=== PATIENT | female | born 1960 | race Caucasian/White ===

== ENCOUNTER 2017-02-14 13:21 | Outpatient (CLI) ==
[2014-11-06 17:16] VITALS: BMI 22.0
[2017-02-14 14:01] LABS: BASOPHILS # (AUTO) 0.1 K/uL (0-0.2); BASOPHILS % (AUTO) 0.9 % (0.0-3.0); EOSINOPHILS # (AUTO) 0.3 K/ul (0.0-0.7); EOSINOPHILS % (AUTO) 5.1 % (0.0-7.0); HEMATOCRIT 39.9 % (37.0-47.0); HEMOGLOBIN 14.2 g/dl (12.0-16.0); IMMATURE GRANULOCYTE % (AUTO) 0.2 % (0.0-5.0); LYMPHOCYTES # (AUTO) 2.7 K/uL (0.60-3.4); MEAN CORPUSCULAR HGB CONC 35.6 (31.8-35.4); MEAN CORPUSCULAR VOLUME 84.4 fl (81.0-99.0); MONOCYTES # (AUTO) 0.4 K/uL (0.4-2.0); MONOCYTES % (AUTO) 6.3 (0-10); NEUTROPHILS # (AUTO) 2.8 K/ul (2.0-6.9); NEUTROPHILS % (AUTO) 44.5; PLATELET COUNT 239 10^3/uL (140-440); RED BLOOD COUNT 4.73 10^6/ul (4.20-5.40); WHITE BLOOD COUNT 6.32 K/ul (4.6-10.2)
[2017-02-14 14:39] LABS: ALBUMIN 3.9 g/dL (3.4-5.0); ALBUMIN/GLOBULIN RATIO 1.05; ANION GAP 12.3; BILIRUBIN,TOTAL 0.41 mg/dL (0.00-1.20); BUN/CREATININE RATIO 13.58; CALCIUM 9.8 mg/dL (8.2-10.2); CHOL/HDL RATIO 6.6 (4.5-5.5); CREATININE 0.81 mg/dL (0.60-1.30); POTASSIUM 4.3 mmol/L (3.5-5.10); TOTAL PROTEIN 7.6 g/dL (6.4-8.2)
== END 2017-02-14 13:22 | disposition home or self-care (01) ==
LOC: LAB 13:21
PROVIDERS: ATTEND Internal Medicine
DX: E78.5 Hyperlipidemia, unspecified (principal); I10 Essential (primary) hypertension; E11.9 Type 2 diabetes mellitus without complications; I63.9 Cerebral infarction, unspecified; J44.9 Chronic obstructive pulmonary disease, unspecified; M19.90 Unspecified osteoarthritis, unspecified site; G62.9 Polyneuropathy, unspecified
CPT/HCPCS: 36415; 80053; 80061; 82607; 83036; 84443; 85025

== ENCOUNTER 2017-04-17 14:10 | Inpatient (IN) ==
[2017-04-17 15:30] VITALS: BMI 21.1
[2017-04-17] MEDS ORDERED: MORPHINE 4 MG/ML VIAL IVP PRN (15:30)
[2017-04-17] MEDS ORDERED: TYLENOL PO PRN (15:30)
[2017-04-17] MEDS ORDERED: NITROSTAT SL PRN (15:30)
[2017-04-17] MEDS ORDERED: ATROPINE SULFATE PFS IVP PRN (15:30)
[2017-04-17] MEDS ORDERED: VISTARIL INJ IM PRN (15:30)
[2017-04-17] MEDS ORDERED: HUMULIN R SUBCUT PRN (15:54)
[2017-04-17 16:01] LABS: BASOPHILS # (AUTO) 0.1 K/uL (0-0.2); BASOPHILS % (AUTO) 0.8 % (0.0-3.0); EOSINOPHILS # (AUTO) 0.3 K/ul (0.0-0.7); HEMATOCRIT 39.9 % (37.0-47.0); HEMOGLOBIN 14.1 g/dl (12.0-16.0); IMMATURE GRANULOCYTE % (AUTO) 0.4 % (0.0-5.0); LYMPHOCYTES % (AUTO) 36.6 (10.0-50.0); MEAN CORPUSCULAR HEMOGLOBIN 30.4 pg (27.0-31.0); MEAN CORPUSCULAR HGB CONC 35.3 (31.8-35.4); MONOCYTES # (AUTO) 0.5 K/uL (0.4-2.0); NEUTROPHILS # (AUTO) 4.3 K/ul (2.0-6.9); NEUTROPHILS % (AUTO) 52.2; PLATELET COUNT 237 10^3/uL (140-440); RED BLOOD COUNT 4.64 10^6/ul (4.20-5.40); WHITE BLOOD COUNT 8.27 K/ul (4.6-10.2)
[2017-04-17] MEDS: PLAVIX PO SCH (16:04)
[2017-04-17 16:15] LABS: ALANINE AMINOTRANSFERASE 24 U/L (12-78); ALBUMIN 3.6 g/dL (3.4-5.0); ALBUMIN/GLOBULIN RATIO 0.88; ALKALINE PHOSPHATASE 99 U/L (42-98); ASPARTATE AMINO TRANSFERASE 15 U/L (15-37); BILIRUBIN,TOTAL 0.37 mg/dL (0.00-1.20); BLOOD UREA NITROGEN 16 mg/dL (7-18); BUN/CREATININE RATIO 18.39; CALCIUM 10.1 mg/dL (8.2-10.2); CARBON DIOXIDE 25 mmol/L (21-32); CHLORIDE 98 mmol/L (98-107); CREATINE KINASE 62 U/L; CREATININE 0.87 mg/dL (0.60-1.30); GLUCOSE 338 mg/dL (70-110); MYOGLOBIN 52 ng/ml; SODIUM 135 mmol/L (136-145); TOTAL PROTEIN 7.7 g/dL (6.4-8.2)
--- NOTE | 2017-04-17 16:33 | DI ---
EXAM: Single view of the chest. History: Short of breath Comparison: Chest radiograph 01/06/2015 Findings: Heart size is normal. No focal consolidation. No appreciable pleural fluid and no pneumo thorax. A few calcified granulomas seen within the thorax. Atherosclerotic vascular calcifications. Impression: No acute cardiopulmonary process
--- NOTE | 2017-04-17 17:04 | CT ---
EXAM: CT of the head with and without contrast History: Cerebrovascular accident. Comparison: Head CT 07/28/2014 Technique: Multiplanar CT images through the head were obtained with and without the administration of IV contrast Findings: Complete opacification of the left maxillary sinus and moderate to severe mucosal thickenin g of the ethmoid air cells. Mild to moderate mucosal thickening of the sphenoid sinuses and frontal sinuses. There is some high density material seen within the sinus mucosal thickening Air fluid leve l within the sphenoid sinuses. Mastoid air cells are clear in general. No acute calvarial abnormali ties. Intracranially the ventricular and cisternal spaces are stable without evidence for hydrocephalus. N o acute intracranial hemorrhage or abnormal extraaxial fluid collections. Periventricular and subcor tical white matter hypodensities again identified. Old bilateral lacunar infarctions again noted. No abnormal contrast enhancement seen within the brain. Impression: 1. No acute intracranial hemorrhage. 2. Old bilateral lacunar infarctions, similar to the prior study. 3. No contrast enhancing lesions are seen within the brain. 4. Paranasal sinusitis as detailed above which is severe involving the left maxillary sinus and mode rate to severe involving the ethmoid air cells. High density material in the sinuses could be relate d to old inspissated secretions, hemorrhage or fungal infection.
--- NOTE | 2017-04-17 17:07 | US ---
EXAM: Bilateral carotid artery Doppler History: Headaches, weakness, cerebrovascular accident. Comparison: Carotid Doppler 05/29/2014 Technique: Multiple sonographic images through the bilateral internal carotid arteries were obtained . Color duplex Doppler was used to interrogate vascular flow. Findings: The right ICA peak systolic velocity is moderately elevated measuring 1.3 meters per second. The rig ht ICA/cca PSV ratio is moderately increased at 2.4. The right vertebral artery was not visualized. The left ICA peak systolic velocity is within normal limits measuring 0.8 meters per second. The lef t ICA/cca PSV ratio is normal at 1.4. The left vertebral artery is patent and demonstrates antegrade flow. Mild plaque buildup seen within the left internal carotid artery on ambriz scale imaging. Moderate gentry que buildup seen within the right internal carotid artery on ambriz scale imaging. Impression: 1. No significant hemodynamic stenosis of the left internal carotid artery. 2. Moderate, 50-69% hemodynamic stenosis of the right internal carotid artery
[2017-04-17] MEDS: HUMULIN R SUBCUT PRN ×2 (17:22→22:55)
[2017-04-17] MEDS: COREG PO SCH (17:25)
[2017-04-17] MEDS: PERCOCET 5-325 PO SCH (20:51)
[2017-04-17] MEDS: ATIVAN PO SCH (20:51)
[2017-04-17] MEDS: CYMBALTA PO SCH (20:51)
[2017-04-17] MEDS: EFFEXOR XR PO SCH (20:51)
[2017-04-17] MEDS: NEURONTIN PO SCH (20:51)
[2017-04-17] MEDS: LANTUS SUBCUT SCH (20:54)
[2017-04-17] MEDS ORDERED: NON-FORMULARY MEDICATION (Duloxetine Hcl [Duloxetine Hcl] 60 MG) PO SCH (21:00)
[2017-04-17] MEDS ORDERED: NON-FORMULARY MEDICATION (Venlafaxine Hcl 150 MG) PO SCH (21:00)
[2017-04-17 23:28] LABS: CREATINE KINASE 60 U/L; MYOGLOBIN 61 ng/ml
[2017-04-18 00:24] LABS: BILIRUBIN,URINE Negative (NEGATIVE); KETONES,URINE Trace (NEGATIVE); LEUKOCYTE ESTERASE ,URINE Trace (NEGATIVE); NITRITE,URINE Negative (NEGATIVE); PH,URINE 5.5 (5-9); PROTEIN,URINE Negative (NEGATIVE); URINE, BLOOD Negative (NEGATIVE)
[2017-04-18 00:29] LABS: ADD URINE MICROSCOPIC YES
[2017-04-18 00:30] LABS: BACTERIA,URINE 4+ (NOT PRESENT)
[2017-04-18] MEDS ORDERED: ASPIRIN EC PO SCH (08:00)
[2017-04-18] MEDS ORDERED: NON-FORMULARY MEDICATION (Losartan/Hydrochlorothiazide [Losartan-Hctz 100-25 Mg Tab] 1 TAB PO SCH (09:00)
[2017-04-18] MEDS ORDERED: NON-FORMULARY MEDICATION (Multivitamin 1 TAB) PO SCH (09:00)
[2017-04-18] MEDS ORDERED: NON-FORMULARY MEDICATION (Calcium Carbonate/Vitamin D3 [Calcium 500-Vit D3 400 Tablet] 1 E PO SCH (09:00)
[2017-04-18 09:12] LABS: BASOPHILS # (AUTO) 0.1 K/uL (0-0.2); BASOPHILS % (AUTO) 0.8 % (0.0-3.0); EOSINOPHILS # (AUTO) 0.4 K/ul (0.0-0.7); EOSINOPHILS % (AUTO) 6.6 % (0.0-7.0); HEMOGLOBIN 13.8 g/dl (12.0-16.0); IMMATURE GRANULOCYTE % (AUTO) 0.2 % (0.0-5.0); LYMPHOCYTES # (AUTO) 2.3 K/uL (0.60-3.4); LYMPHOCYTES % (AUTO) 36.9 (10.0-50.0); MEAN CORPUSCULAR HEMOGLOBIN 30.3 pg (27.0-31.0); MEAN CORPUSCULAR HGB CONC 35.4 (31.8-35.4); MEAN CORPUSCULAR VOLUME 85.7 fl (81.0-99.0); MONOCYTES # (AUTO) 0.5 K/uL (0.4-2.0); MONOCYTES % (AUTO) 8.2 (0-10); NEUTROPHILS # (AUTO) 2.9 K/ul (2.0-6.9); NEUTROPHILS % (AUTO) 47.3; PLATELET COUNT 212 10^3/uL (140-440); RED BLOOD COUNT 4.55 10^6/ul (4.20-5.40)
[2017-04-18 09:33] LABS: ALBUMIN 3.7 g/dL (3.4-5.0); ALBUMIN/GLOBULIN RATIO 1.09; ANION GAP 12.7; BILIRUBIN,TOTAL 0.33 mg/dL (0.00-1.20); BUN/CREATININE RATIO 19.48; CREATININE 0.77 mg/dL (0.60-1.30); POTASSIUM 3.7 mmol/L (3.5-5.10); TOTAL PROTEIN 7.1 g/dL (6.4-8.2)
[2017-04-18] MEDS: NEURONTIN PO SCH ×3 (10:46→20:55)
[2017-04-18] MEDS: HYZAAR 50-12.5 MG TAB PO SCH (10:46)
[2017-04-18] MEDS: MULTIVITAMIN TABLET PO SCH (10:47)
[2017-04-18] MEDS: COREG PO SCH ×2 (10:47→16:42)
[2017-04-18] MEDS: ASPIRIN EC PO SCH (10:48)
[2017-04-18] MEDS: CALCIUM 500 + VIT D 200 MG TABLET PO SCH (10:48)
[2017-04-18] MEDS: BACTRIM DS 800/160 MG PO SCH ×2 (10:48→20:55)
[2017-04-18] MEDS: PLAVIX PO SCH (10:48)
[2017-04-18] MEDS: PERCOCET 5-325 PO SCH ×3 (10:49→20:55)
--- NOTE | 2017-04-18 11:01 | DI ---
EXAM: Double contrast upper GI History: Difficulty swallowing. Technique: Patient was given gas crystals. Patient was then given oral barium and multiple spot perla ms of the esophagus, stomach and duodenum were obtained in multiple projections. Findings: The course and caliber of the esophagus are within normal limits. No mucosal lesions or filling defe cts identified. No hiatal hernia identified. No gastroesophageal reflux was observed on this study. The course and caliber of the stomach are within normal limits. No mucosal lesions or ulcerations se en. The course and caliber of the duodenum is within normal limits without stricture or diverticulum . No extravasation of contrast material. Impression: Normal study
--- NOTE | 2017-04-18 11:26 | PCM.PROG ---
Attending Provider: ATTENDING PROVIDER: Dr. MATT FISHER DATE OF SERVICE: 04/18/17 SUBJECTIVE: This 57 year old WHITE/ F was hospitalized 04/17/17. The patient is admitted with ataxia and several neurological symptoms with dysphasia onset 08/04. The patient has history of CVA but didn't go to hospital; however, came to office with several complaints. The other complaint was urinary incontinence as well as difficulty speaking. UA showed 4+ bacteria. Telemetry did not show any significant arrhythmias. CT scan did not show any acute findings. Right carotid artery showed moderate carotid stenosis, left is clear. REVIEW OF SYSTEMS: CONSTITUTIONAL: Generalized weakness. Difficulty with speech. No night sweats. No fever or chills. HEENT: Eyes: No visual changes. No eye pain. No eye discharge. ENT: No runny nose. No epistaxis. No sinus pain. No odynophagia. No congestion. RESPIRATORY: No cough, no congestion. No hemoptysis. No shortness of breath. CARDIOVASCULAR: No angina symptoms. No CHF symptoms. No atypical chest pain for CAD. No palpitations. No orthopnea.. GASTROINTESTINAL: No abdominal pain. No nausea or vomiting. No diarrhea or constipation. No hematemesis. No hematochezia. GENITOURINARY: Incontinence. No discharge. No pain. No significant abnormal bleeding. MUSCULOSKELETAL: Ataxia. Walks by herself without a cane. NEUROLOGICAL: Awake, alert, oriented to time, place and person. No headache. No neck pain. No syncope. No seizures. No dizziness. PSYCHIATRIC: Not anxious. No depression. No suicidal thoughts. No homicidal thoughts. SKIN: No rash. No lesions. No wounds. ENDOCRINE: No unexplained weight loss. No weight gain. HEMATOLOGIC/LYMPHATIC: No anemia. No purpura. No petechiae. No prolonged or excessive bleeding. No palpable lymph nodes. PHYSICAL EXAMINATION: GENERAL: The patient is awake, alert and oriented, lying/sitting in bed in no distress. VITAL SIGNS: Temperature 98.4 F, Pulse 83, Respiratory Rate 16, BP 121/73, Pulse Ox 94% HEENT: Head normocephalic, atraumatic. Eyes: Extraocular muscles are intact. Pupils are equal, round and reactive to light and accommodation. Ears: No lesions. Nose appeared normal. Throat: No exudate or erythema. NECK: Supple. No JVD, no carotid bruit. No lymphadenopathy or thyromegaly. LUNGS: Clear to auscultation. Percussion note normal. Chest symmetrical. HEART: S1, S2, no S3. No murmurs. No cyanosis or clubbing. No ascites. Pulses: Dorsalis pedis and posterior tibial pulses +1 to +2 both sides. ABDOMEN: Soft. Non-tender. Bowel sounds active. No CVA tenderness. No mass felt. EXTREMITIES: No edema. Full range of motion of all extremities, equal. NEUROLOGIC: No focal deficit. Cranial nerves II through XII are grossly intact. No headache, no double vision or headache. SKIN: Not dry. Intact. Turgor-normal. LYMPHATIC: No palpable lymph nodes/no lymphedema. MUSCULOSKELETAL: Normal joints with no swelling. Muscle tone is normal. LAB REVIEW: 04/17/17 15:45 04/17/17 15:45 04/17/17 23:02: Total Creatine Kinase 60, Myoglobin 61, Troponin I < 0.0100 04/17/17 21:00: Urine Color Yellow, Urine Clarity Cloudy, Urine pH 5.5, Ur Specific [place] 1.010, Urine Protein Negative, Urine Glucose (UA) 2+, Urine Ketones Trace, Urine Blood Negative, Urine Nitrite Negative, Urine Bilirubin Negative, Urine Urobilinogen 0.2, Ur Leukocyte Esterase Trace, Urine Microscopic RBC 0-2, Urine Microscopic WBC 2-5, Ur Squamous Epith Cells 0-2, Urine Bacteria 4+ 04/17/17 15:45: WBC 8.27, RBC 4.64, Hgb 14.1, Hct 39.9, MCV 86.0, MCH 30.4, MCHC 35.3, RDW Coeff of Abbi 11.9, Plt Count 237, Immature Gran % (Auto) 0.4, Neut % (Auto) 52.2, Lymph % (Auto) 36.6, [place] % (Auto) 6.0, Eos % (Auto) 4.0, Baso % (Auto) 0.8, Immature Gran # (Auto) 0.0, Neut # 4.3, Lymph # 3.0, [place] # 0.5, Eos # 0.3, Baso # 0.1 04/17/17 15:45: Sodium 135 L, Potassium 4.0, Chloride 98, Carbon Dioxide 25, Anion Gap 16.0, BUN 16, Creatinine 0.87, Estimated GFR (MDRD) 67.00, BUN/ Creatinine Ratio 18.39, Glucose 338 H, Calcium 10.1, Total Bilirubin 0.37, AST 15, ALT 24, Alkaline Phosphatase 99 H, Total Creatine Kinase 62, Myoglobin 52, Troponin I < 0.0100, Total Protein 7.7, Albumin 3.6, Globulin 4.1, Albumin/ Globulin Ratio 0.88 ASSESSMENT: 1. The patient likely had CVA with several neurological findings relatively new likely two to three weeks ago 2. UTI 3. 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 Carotid stenosis 5. Smoking with chronic lung disease 6. Hypertension 7. Dyslipidemia 8. Diabetes mellitus PLAN: 1. The patient's biggest problem is noncompliance. 2. Will do swallow study. 3. Start antibiotics Septra b.i.d. for 10 days. 4. Have patient up and about. 5. CBC with CMP daily. 6. A1C. Plan and coordination of the patient's care discussed in the presence of Charging Manipulator and nurse. EDUCATION: Counseling for smoking is done. CONDITION: Stable SCRIBED BY: ROZINA CARLOS [employer] Vice President scribed while in presence of service performed by Dr. MATT FISHER on 04/18/17 ([id number])
[2017-04-18] MEDS: HUMULIN R SUBCUT PRN ×3 (13:04→20:56)
--- NOTE | 2017-04-18 13:06 | RS.PTINEVL ---
Subjective - Patient information Date of Evaluation: 04/18/17 Date of Arrival on Unit: 04/17/17 Admitted From:: Home Diagnosis: ataxia, generalized weakness, difficulty with speech and swallowing Living Arrangement Comments: With significant other Home Environment: House, Stairs (many), Rail Medical History: Hypertension, COPD, Diabetes Medical History Comments:: DJD, anxiety, neuropathy, CVA with right gretta LATEX ALLERGY?: No Surgical History: Hip Replacement Subjective Information/ Patient Comments:: pt states she began having increased difficulty with speech and swallowing at home and thought she was having another stroke. 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, Drive, Participated in Social Activities Outside home, Volunteer/Work Current Level of Function: Partially Dependent Current Equipment Used at Home: walker, cane, glucometer, shower chair, bedside commode Interventions - Objective Patient Orientation: Person, Place, Time, Situation Current Interventions: IV's, Telemetry Range of Motion - ROM Right Upper Extremity AROM: WFL's Left Upper Extremity AROM: WFL's Right Lower Extremity AROM: WFL's Left Lower Extremity AROM: WFL's Muscle Strength - Muscle Strength Right Upper Extremity Strength: Mild Weakness (grossly 4-/5) Left Upper Extremity Strength: Mild Weakness (grossly 4-/5) Right Lower Extremity Strength: Mild Weakness (hip flex 4-/5, knee flex/ext 4-/5 , ankle Df/PF 4-/5) Left Lower Extremity Strength: Mild Weakness (hip flex 4/5, knee flex/ext 4/5, ankle df/pf 4/5) Sensation - Sensation Right Upper Extremity Sensation: Impaired Left Upper Extremity Sensation: Intact/Normal Right Lower Extremity Sensation: Impaired Left Lower Extremity Sensation: Intact/Normal (n/t RUE and RLE) Balance - Sitting Balance and Reactions Static Sitting Balance: Good Dynamic Sitting Balance: Good - Standing Balance and Reactions Static Standing Balance: Fair Dynamic Standing Balance: Poor Standing Equilibrium Reactions: Delayed Left, Delayed Right Standing Protective Reactions: Delayed Left, Delayed Right - Comments Balance Assessment Comments: pt required CGA to maintain balance. Functional Mobility - Bed Mobility Rolling R/L: Independent Scooting: Independent Supine to Sit: Supervision - Transfers Sit to Stand: CGA Stand to Sit: CGA - Safety Awareness Safety Awareness: Fair Ambulation - Ambulation Assistive Device Used: Gait belt Orthotic/Prosthetic Device: No Distance: 100ft Assistance needed with Ambulation: CGA, 1 person assist Gait Deviations: Ataxic gait, Forward posture, Deviates from path Ambulation Comments: pt amb with ORIENTOR for CGA with ataxic gait with decreased heel strike on R heel. Factors Affecting Ambulation: Decreased Balance, Weakness, Decreased Coordination, Cognitive Status, Limited Endurance Treatment time - Time with patient Total treatment time: 28 Patient Education - Education Patient Education: Activity Modification, Education of Plan of Care Teaching Recipient: Patient Teaching Methods: Discussion (Discussion with pt regarding POC ) Assessment - Assessment Problem List:: Decreased level of function, Requires training/education, Decreased safety/Risk of falls, Weakness Rehab Potential: Good Further Therapy Indicated?: Yes Short Term Goals GOAL #1: pt transfer sup to/from sit to/from stand SBA Goal to be met by: 04/20/17 GOAL #2: pt amb with/without AAD 150ft with improved heel strike on R Goal to be met by: 04/20/17 Piece [place] Goals GOAL #1: sup to/from sit to/from stand independently Goal to be met by: 04/22/17 GOAL #2: pt amb functional distances with/without AAD with no LOB Goal to be met by: 04/22/17 GOAL #3: pt with improved strength BLE 4 to 4+/5 and independent with HEP Goal to be met by: 04/22/17 Plan Plan of Care: Therapeutic EX, Therapeutic Activity, Self-Care/Home Management Other:: gait training Frequency of Treatment: 1-2 X day, as tolerated Duration of Treatment: 4 days Anticipated Discharge Destination: Home Has the Physician been added for Co-signature?: Yes
--- NOTE | 2017-04-18 13:15 | RS.OTINEVL ---
Subjective - Patient information Date of Evaluation: 04/18/17 Date of Arrival on Unit: 04/17/17 Admitted From:: Home Diagnosis: Weakness Living Arrangement Comments: With significant other Home Environment: House, Stairs (many), Rail Medical History: Hypertension, CVA/TIA, COPD, Diabetes Medical History Comments:: DJD, anxiety, neuropathy, CVA x 2 with right gretta, decreased RLE proprioception. depression, PTCA with stenting, TIA, Ataxia, edema of B ankles, endocrine disease, STM impaired, difficulty swallowing, and talking. LATEX ALLERGY?: No Surgical History: Hip Replacement Surgical History Comments:: Ablasion, tubal ligation, tonsillectomy, B Hip surgeries Subjective Information/ Patient Comments:: Pt reports she does not drive because she cannot feel her RLE. 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 Pt lives in a house with a rail and 6 steps. Current Level of Function: Partially Dependent Current Equipment Used at Home: walker, cane, glucometer, shower chair, bedside commode Pain Assessment - Pain Pain Score: 0 Interventions - Objective Patient Orientation: Person (Pt would benefit from a Walker for ambulation and transfers at this time.), Place, Situation Current Interventions: IV's, Oxygen Observation: Pt requires Hand held assistance for walking. Interventions - ROM Right Upper Extremity AROM: WFL's Left Upper Extremity AROM: WFL's - Strength Right Upper Extremity Strength: Mild Weakness Left Upper Extremity Strength: Mild Weakness - Sensation Right Upper Extremity Sensation: Intact/Normal Left Upper Extremity Sensation: Intact/Normal Balance - Sitting Balance Static Sitting Balance: Fair Dynamic Sitting Balance: Fair - Standing Balance Static Standing Balance: Poor Dynamic Standing Balance: Poor - Comments Balance Assessment Comments: Pt has RLE impaired proprioception. Pt tries to mateo on merino and door handles. ADL Skills - Self Feeding Self Feeding: Supervision - Grooming Grooming: Supervision - Bathing Bathing UE: Supervision Bathing LE: CGA - Dressing Dressing UE: Supervision Dressing LE: CGA - Toilet Management Toileting Management: Min Assist Functional Mobility - Bed Mobility Rolling R/L: CGA Scooting: Min Assist Supine to Sit: Min Assist Sit to Supine: Supervision - Transfers Sit to Stand: Min Assist Stand to Sit: Min Assist Stand Pivot Transfers: Min Assist - Ambulation Assistive Device Used: Straight Cane Assistance needed with Ambulation: Min Assist - Safety Awareness Safety Awareness: Fair Additional Treatment Performed - Time with patient Total treatment time: 20 Activities Patient Interests:: Watching Television Patient Education Patient Education: Education of diagnosis, Education of Plan of Care Teaching Recipient: Patient Teaching Methods: Discussion Assessment Problem List:: Decreased level of function, Requires training/education, Decreased safety/Risk of falls, Weakness, Cognitive status limits abilities Rehab Potential: Good Further Therapy Indicated?: Yes Short Term Goals - Goals GOAL 1: Pt will be CGA with self care. Goal to be met by: 04/25/17 GOAL 2: Pt will be (S) for ADL transfers. Goal to be met by: 04/25/17 GOAL 3: Pt will be (S) with functional mobility. Goal to be met by: 04/25/17 Mcc Goals GOAL 1: Pt will be [place] with self care. Goal to be met by: 05/02/17 GOAL 2: Pt will be [place] for ADL transfers. Goal to be met by: 05/02/17 GOAL 3: Pt will be [place] with functional mobility. Goal to be met by: 04/19/17 Plan Plan of Care: Therapeutic EX, Neuromuscular Re-Educ, Therapeutic Activity, Self- Care/Home Management Frequency of Treatment: 1-2 X day, as tolerated Duration of Treatment: 2 Weeks Anticipated Discharge Destination: Home Has the Physician been added for Co-signature?: Yes
--- NOTE | 2017-04-18 15:03 | HP ---
DATE OF SERVICE: 04/17/17 HISTORY OF PRESENT ILLNESS: This 57-year-old female presents feeling tired, difficulty walking. She feels like she had another strone 03/23/17. She has difficulty with speech , trouble swallowing liquids and weak - just can't get over it. She is incontinent at all times. She did not go to the hospital/refuses neurological evaluation. PAST MEDICAL HISTORY: 1. CVA ischemic both cerebral hemispheres 2. Diabetes mellitus Type 2 3. Neuropathy 4. Hypertension 5. Dyslipidemia 6. Carotid stenosis moderate on the right (Carotid US 05/29/14 7. COPD 8. Continued tobacco use 9. DJD spine 10. Anxiety/depression MENSTRUAL HISTORY: 2004 PAST SURGICAL HISTORY: T & A Tubal Left total hip replacement Pain right hip REVIEW OF SYSTEMS: CONSTITUTIONAL: Positive for fatigue. No fever. HEENT: No sinus drainage, no sore throat. Difficulty swallowing some with liquid. RESPIRATORY: No cough, no congestion. CARDIOVASCULAR: Positive for shortness of breath as usual. No atypical chest pain for coronary artery disease. No angina, CHF symptoms, or palpitations. GASTROINTESTINAL: No melena or abdominal pain. No GERD. GENITOURINARY: No hematuria, no polyuria. FILING WRITER: No blackout, no dizziness, no headache, no double vision. Gait: Ataxic. MUSCULOSKELETAL: Osteoarthritic pain. No joint swelling. ENDOCRINE: Weight loss of 5 lbs. SKIN: Not dry, no rash. PSYCHIATRIC: Not anxious, no depression, no suicidal thoughts, no homicidal thoughts. SOCIAL HISTORY: Single. Smoker - 1/2 pack per day for 35 years. No alcohol use. No illicit drug use. Children: Three, girl (41), girl (38), boy (35) - 41-year-old has CAD and diabetes mellitus. Retired. FAMILY HISTORY: Father , TIA 71 years. Mother , breast cancer, 76 years. Brother (s) 6 - two ; one auto accident; two CAD. No sisters. MEDICATIONS: Coreg 25 mg b.i.d. Ativan 1 mg h.s. Vitamins daily Calcium daily ASA 81 mg daily Percocet 5/325 mg t.i.d. Losartan/HCTZ 100/25 mg daily Cymbalta 60 mg daily Effexor 150 mg daily Neurontin 300 mg p.o. t.i.d. Stopped insulin because of weight gain Lantus 40 mg q.evening ALLERGIES: AVELOX, CIPRO, BIAXIN, AUGMENTIN, ALL STATINS, ASA, CRESTOR, LIPITOR PHYSICAL EXAMINATION: V/S: Pulse 100, BP 142/96, 02 sat 98%, weight 136.4. Height 5'7", BMI 21.4. GENERAL APPEARANCE: Oriented times three. HEENT: Normal. NECK: No JVP, no bruits. RESPIRATORY: Decreased breath sounds. Lungs are clear. CARDIOVASCULAR: S1, S2, no S3, no murmurs. No cyanosis, clubbing. No ascites. GI/ABDOMEN: No tenderness. Bowel sounds are active. EXTREMITIES: No edema, pulses +1, equal. FILING WRITER: Deep tendon reflexes, sensory, motor and gait all normal. RECTAL/PELVIC: Colonoscopy refused. Pelvic: Patient refused. Colocare: Refused. ASSESSMENT: 1. ATAXIC - MORE DIFFICULTY THAN BEFORE 2. URINARY INCONTINENCE 3. GENERALIZED WEAKNESS 4. DIFFICULTY WITH SPEECH/SWALLOWING LIQUIDS 5. SHORTNESS OF BREATH/TIRED 6. CVA WITH RIGHT HEMIPARESIS 7. ATAXIA 8. SEVERE COPD/SMOKING 9. CARDIAC CATH 10. HYPERTENSION 11. DYSLIPIDEMIA 12. CAROTID STENOSIS 13. DIABETES MELLITUS TYPE 2, A1C 10.9 ON 02/14/17 ON LANTUS 40 AT NIGHT 14. DEPRESSION, EFFEXOR HELPS 15. DJD SPINE 16. NEUROPATHY PLAN: 1. Admit with routine telemetry orders 2. CT scan of brain with contrast 3. PT/OT speech therapy evaluate and treat 4. Smoking cessation advised 5. Carotid scan/vertebral scan 6. Upper GI/Barium Swallow 7. Continue all home medicastions 8. Accu-Cheks q.i.d. with sliding scale 9. Plavix 75 mg p.o. daily TIME SPENT: More than 70 minutes. MTDD
[2017-04-18] MEDS: ATIVAN PO SCH (20:55)
[2017-04-18] MEDS: CYMBALTA PO SCH (20:55)
[2017-04-18] MEDS: EFFEXOR XR PO SCH (20:55)
[2017-04-18] MEDS: LANTUS SUBCUT SCH (20:56)
[2017-04-19 05:40] LABS: BASOPHILS % (AUTO) 0.7 % (0.0-3.0); EOSINOPHILS # (AUTO) 0.3 K/ul (0.0-0.7); EOSINOPHILS % (AUTO) 5.7 % (0.0-7.0); HEMATOCRIT 38.7 % (37.0-47.0); HEMOGLOBIN 13.6 g/dl (12.0-16.0); IMMATURE GRANULOCYTE % (AUTO) 0.3 % (0.0-5.0); LYMPHOCYTES # (AUTO) 2.3 K/uL (0.60-3.4); MEAN CORPUSCULAR HEMOGLOBIN 30.4 pg (27.0-31.0); MEAN CORPUSCULAR HGB CONC 35.1 (31.8-35.4); MEAN CORPUSCULAR VOLUME 86.4 fl (81.0-99.0); MONOCYTES # (AUTO) 0.6 K/uL (0.4-2.0); MONOCYTES % (AUTO) 9.2 (0-10); NEUTROPHILS # (AUTO) 2.7 K/ul (2.0-6.9); NEUTROPHILS % (AUTO) 45.1; PLATELET COUNT 215 10^3/uL (140-440); RED BLOOD COUNT 4.48 10^6/ul (4.20-5.40); WHITE BLOOD COUNT 5.98 K/ul (4.6-10.2)
[2017-04-19 06:01] LABS: ALBUMIN 3.5 g/dL (3.4-5.0); ALBUMIN/GLOBULIN RATIO 1.06; ANION GAP 13.5; BILIRUBIN,TOTAL 0.24 mg/dL (0.00-1.20); CALCIUM 9.6 mg/dL (8.2-10.2); CREATININE 0.85 mg/dL (0.60-1.30); POTASSIUM 3.5 mmol/L (3.5-5.10); TOTAL PROTEIN 6.8 g/dL (6.4-8.2)
[2017-04-19] MEDS ORDERED: DECADRON 4 MG/ML SDV IM STA (08:26)
[2017-04-19] MEDS: HYZAAR 50-12.5 MG TAB PO SCH (09:18)
[2017-04-19] MEDS: PERCOCET 5-325 PO SCH ×3 (09:18→21:48)
[2017-04-19] MEDS: COREG PO SCH ×2 (09:19→17:13)
[2017-04-19] MEDS: MULTIVITAMIN TABLET PO SCH (09:19)
[2017-04-19] MEDS: PLAVIX PO SCH (09:19)
[2017-04-19] MEDS: ASPIRIN EC PO SCH (09:19)
[2017-04-19] MEDS: NEURONTIN PO SCH ×3 (09:19→21:49)
[2017-04-19] MEDS: BACTRIM DS 800/160 MG PO SCH ×2 (09:19→21:48)
[2017-04-19] MEDS: CALCIUM 500 + VIT D 200 MG TABLET PO SCH (09:19)
--- NOTE | 2017-04-19 09:34 | PN ---
DATE OF SERVICE: 04/18/17 SUBJECTIVE: Normal swallowing study and chest x-ray normal. TIME SPENT: More than 30 minutes. Plan and coordination of the patient's care discussed in the presence of nurse. KONSTANTIN
[2017-04-19] MEDS: HUMULIN R SUBCUT PRN ×3 (11:17→21:10)
--- NOTE | 2017-04-19 12:47 | PCM.PROG ---
Attending Provider: ATTENDING PROVIDER: Dr. MATT FISHER This patient is seen with Lizz Gallegos, Nurse Practitioner. DATE OF SERVICE: 04/19/17 SUBJECTIVE: This 57 year old WHITE/ F was hospitalized 04/17/17. The patient is lying in bed, alert. The patient had upper GI yesterday, results pending. Speech evaluation consult today. REVIEW OF SYSTEMS: CONSTITUTIONAL: Weakness. No night sweats. No fever or chills. HEENT: Eyes: No visual changes. No eye pain. No eye discharge. ENT: No runny nose. No epistaxis. No sinus pain. No odynophagia. No congestion. RESPIRATORY: No cough, no congestion. No hemoptysis. No shortness of breath. CARDIOVASCULAR: No angina symptoms. No CHF symptoms. No atypical chest pain for CAD. No palpitations. No orthopnea.. GASTROINTESTINAL: No abdominal pain. No nausea or vomiting. No diarrhea or constipation. No hematemesis. No hematochezia. GENITOURINARY: No urgency. No frequency. No dysuria. No hematuria. No obstructive symptoms. No discharge. No pain. No significant abnormal bleeding. MUSCULOSKELETAL: No musculoskeletal pain; no joint swelling. NEUROLOGICAL: Awake, alert, oriented to time, place and person. No headache. No neck pain. No syncope. No seizures. No dizziness. Gait: Ataxia. Positive for slow speech. PSYCHIATRIC: Not anxious. No depression. No suicidal thoughts. No homicidal thoughts. SKIN: No rash. No lesions. No wounds. ENDOCRINE: No unexplained weight loss. No weight gain. HEMATOLOGIC/LYMPHATIC: No anemia. No purpura. No petechiae. No prolonged or excessive bleeding. No palpable lymph nodes. PHYSICAL EXAMINATION: GENERAL: The patient is awake, alert and oriented, lying in bed in no distress. VITAL SIGNS: Temperature 97.8 F, Pulse 79, Respiratory Rate 18, BP 108/73, Pulse Ox 94% HEENT: Head normocephalic, atraumatic. Eyes: Extraocular muscles are intact. Pupils are equal, round and reactive to light and accommodation. Ears: No lesions. Nose appeared normal. Throat: No exudate or erythema. NECK: Supple. No JVD, no carotid bruit. No lymphadenopathy or thyromegaly. LUNGS: Diminished breath sounds bilaterally with wheeze on right. Percussion note normal. Chest symmetrical. HEART: S1, S2, no S3. No murmurs. No cyanosis or clubbing. No ascites. Pulses: Dorsalis pedis and posterior tibial pulses +1 to +2 both sides. ABDOMEN: Soft. Non-tender. Bowel sounds active. No CVA tenderness. No mass felt. EXTREMITIES: No edema. Full range of motion of all extremities, equal. NEUROLOGIC: No focal deficit. Cranial nerves II through XII are grossly intact. No headache, no double vision or headache. SKIN: Not dry. Intact. Turgor-normal. LYMPHATIC: No palpable lymph nodes/no lymphedema. MUSCULOSKELETAL: Normal joints with no swelling. Muscle tone is normal. LAB REVIEW: 04/19/17 05:37 04/19/17 05:37 04/19/17 05:37: Sodium 137, Potassium 3.5, Chloride 100, Carbon Dioxide 27, Anion Gap 13.5, BUN 17, Creatinine 0.85, Estimated GFR (MDRD) 69.00, BUN/ Creatinine Ratio 20.00, Glucose 123 H D, Calcium 9.6, Total Bilirubin 0.24, AST 13 L, ALT 22, Alkaline Phosphatase 82, Total Protein 6.8, Albumin 3.5, Globulin 3.3, Albumin/Globulin Ratio 1.06 04/19/17 05:37: WBC 5.98, RBC 4.48, Hgb 13.6, Hct 38.7, MCV 86.4, MCH 30.4, MCHC 35.1, RDW Coeff of Abbi 11.9, Plt Count 215, Immature Gran % (Auto) 0.3, Neut % (Auto) 45.1, Lymph % (Auto) 39.0, [place] % (Auto) 9.2, Eos % (Auto) 5.7, Baso % (Auto) 0.7, Immature Gran # (Auto) 0.0, Neut # 2.7, Lymph # 2.3, Canadian # 0.6, Eos # 0.3, Baso # 0.0 04/18/17 08:55: Hemoglobin A1c 11.1 H 04/18/17 08:55: Sodium 137, Potassium 3.7, Chloride 101, Carbon Dioxide 27, Anion Gap 12.7, BUN 15, Creatinine 0.77, Estimated GFR (MDRD) 77.00, BUN/ Creatinine Ratio 19.48, Glucose 176 H D, Calcium 10.0, Total Bilirubin 0.33, AST 16, ALT 24, Alkaline Phosphatase 93, Total Protein 7.1, Albumin 3.7, Globulin 3.4, Albumin/Globulin Ratio 1.09 04/18/17 08:55: WBC 6.20, RBC 4.55, Hgb 13.8, Hct 39.0, MCV 85.7, MCH 30.3, MCHC 35.4, RDW Coeff of Abbi 11.9, Plt Count 212, Immature Gran % (Auto) 0.2, Neut % (Auto) 47.3, Lymph % (Auto) 36.9, Canadian % (Auto) 8.2, Eos % (Auto) 6.6, Baso % (Auto) 0.8, Immature Gran # (Auto) 0.0, Neut # 2.9, Lymph # 2.3, Canadian # 0.5, Eos # 0.4, Baso # 0.1 ASSESSMENT: 1. The patient likely had CVA with several neurological findings relatively new likely two to three weeks ago 2. UTI 3. 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 Carotid stenosis 5. Smoking with chronic lung disease 6. Hypertension 7. Dyslipidemia 8. Diabetes mellitus, uncontrolled due to noncompliance 9. Acute COPD exacerbation PLAN: 1. 1 cc Decadron 2. Albuterol nebs t.i.d. IVAN Plan and coordination of the patient's care discussed in the presence of Tea Blender and nurse. CONDITION: Stable SCRIBED BY: ROZINA CARLOS Painter And Grader Cork scribed while in presence of service performed by Dr. Fisher/Lizz Gallegos APRN on 04/19/17 ([id number])
[2017-04-19] MEDS: ALBUTEROL 0.042% NEB NEB SCH ×2 (14:20→21:32)
[2017-04-19] MEDS: LANTUS SUBCUT SCH (21:11)
[2017-04-19] MEDS: CYMBALTA PO SCH (21:48)
[2017-04-19] MEDS: ATIVAN PO SCH (21:48)
[2017-04-19] MEDS: EFFEXOR XR PO SCH (21:49)
[2017-04-20] MEDS: ALBUTEROL 0.042% NEB NEB SCH ×3 (05:39→22:12)
[2017-04-20 05:58] LABS: BASOPHILS % (AUTO) 0.2 % (0.0-3.0); EOSINOPHILS # (AUTO) 0.1 K/ul (0.0-0.7); EOSINOPHILS % (AUTO) 1.6 % (0.0-7.0); HEMATOCRIT 35.3 % (37.0-47.0); HEMOGLOBIN 12.5 g/dl (12.0-16.0); IMMATURE GRANULOCYTE % (AUTO) 0.2 % (0.0-5.0); LYMPHOCYTES # (AUTO) 2.5 K/uL (0.60-3.4); LYMPHOCYTES % (AUTO) 30.1 (10.0-50.0); MEAN CORPUSCULAR HEMOGLOBIN 30.2 pg (27.0-31.0); MEAN CORPUSCULAR HGB CONC 35.4 (31.8-35.4); MEAN CORPUSCULAR VOLUME 85.3 fl (81.0-99.0); MONOCYTES # (AUTO) 0.7 K/uL (0.4-2.0); MONOCYTES % (AUTO) 8.4 (0-10); NEUTROPHILS # (AUTO) 4.9 K/ul (2.0-6.9); NEUTROPHILS % (AUTO) 59.5; PLATELET COUNT 234 10^3/uL (140-440); RED BLOOD COUNT 4.14 10^6/ul (4.20-5.40); WHITE BLOOD COUNT 8.26 K/ul (4.6-10.2)
[2017-04-20 06:16] LABS: ALBUMIN 3.6 g/dL (3.4-5.0); ALBUMIN/GLOBULIN RATIO 1.13; ANION GAP 13.4; BILIRUBIN,TOTAL 0.23 mg/dL (0.00-1.20); BUN/CREATININE RATIO 22.22; CALCIUM 9.7 mg/dL (8.2-10.2); CREATININE 0.81 mg/dL (0.60-1.30); POTASSIUM 3.4 mmol/L (3.5-5.10); TOTAL PROTEIN 6.8 g/dL (6.4-8.2)
[2017-04-20] MEDS: ASPIRIN EC PO SCH (09:01)
[2017-04-20] MEDS: PERCOCET 5-325 PO SCH ×3 (09:01→21:18)
[2017-04-20] MEDS: MULTIVITAMIN TABLET PO SCH (09:02)
[2017-04-20] MEDS: HYZAAR 50-12.5 MG TAB PO SCH (09:02)
[2017-04-20] MEDS: K-DUR PO SCH ×2 (09:02→18:06)
[2017-04-20] MEDS: CALCIUM 500 + VIT D 200 MG TABLET PO SCH (09:02)
[2017-04-20] MEDS: BACTRIM DS 800/160 MG PO SCH ×2 (09:02→21:18)
[2017-04-20] MEDS: COREG PO SCH ×2 (09:02→18:07)
[2017-04-20] MEDS: PLAVIX PO SCH (09:02)
[2017-04-20] MEDS: NEURONTIN PO SCH ×3 (09:02→21:18)
[2017-04-20] MEDS: LANTUS SUBCUT SCH (21:17)
[2017-04-20] MEDS: HUMULIN R SUBCUT PRN (21:17)
[2017-04-20] MEDS: EFFEXOR XR PO SCH (21:18)
[2017-04-20] MEDS: CYMBALTA PO SCH (21:18)
[2017-04-20] MEDS: ATIVAN PO SCH (21:18)
[2017-04-21] MEDS: ALBUTEROL 0.042% NEB NEB SCH ×3 (05:07→22:53)
[2017-04-21 05:17] LABS: BASOPHILS # (AUTO) 0.1 K/uL (0-0.2); BASOPHILS % (AUTO) 0.8 % (0.0-3.0); EOSINOPHILS # (AUTO) 0.4 K/ul (0.0-0.7); EOSINOPHILS % (AUTO) 5.8 % (0.0-7.0); HEMATOCRIT 35.5 % (37.0-47.0); HEMOGLOBIN 12.2 g/dl (12.0-16.0); IMMATURE GRANULOCYTE % (AUTO) 0.2 % (0.0-5.0); LYMPHOCYTES # (AUTO) 2.9 K/uL (0.60-3.4); LYMPHOCYTES % (AUTO) 45.1 (10.0-50.0); MEAN CORPUSCULAR HGB CONC 34.4 (31.8-35.4); MEAN CORPUSCULAR VOLUME 87.2 fl (81.0-99.0); MONOCYTES # (AUTO) 0.4 K/uL (0.4-2.0); MONOCYTES % (AUTO) 6.3 (0-10); NEUTROPHILS # (AUTO) 2.7 K/ul (2.0-6.9); NEUTROPHILS % (AUTO) 41.8; PLATELET COUNT 209 10^3/uL (140-440); RED BLOOD COUNT 4.07 10^6/ul (4.20-5.40); WHITE BLOOD COUNT 6.34 K/ul (4.6-10.2)
[2017-04-21 05:47] LABS: ALBUMIN 3.4 g/dL (3.4-5.0); ALBUMIN/GLOBULIN RATIO 1.1; ANION GAP 13.7; BILIRUBIN,TOTAL 0.19 mg/dL (0.00-1.20); BUN/CREATININE RATIO 17.39; CALCIUM 9.3 mg/dL (8.2-10.2); CREATININE 0.92 mg/dL (0.60-1.30); POTASSIUM 3.7 mmol/L (3.5-5.10); TOTAL PROTEIN 6.5 g/dL (6.4-8.2)
[2017-04-21] MEDS: ASPIRIN EC PO SCH (08:57)
[2017-04-21] MEDS: HYZAAR 50-12.5 MG TAB PO SCH (08:58)
[2017-04-21] MEDS: K-DUR PO SCH ×2 (08:58→17:42)
[2017-04-21] MEDS: COREG PO SCH ×2 (08:58→17:42)
[2017-04-21] MEDS: PLAVIX PO SCH (08:59)
[2017-04-21] MEDS: NEURONTIN PO SCH ×3 (08:59→20:40)
[2017-04-21] MEDS: MULTIVITAMIN TABLET PO SCH (08:59)
[2017-04-21] MEDS: BACTRIM DS 800/160 MG PO SCH ×2 (08:59→20:41)
[2017-04-21] MEDS: CALCIUM 500 + VIT D 200 MG TABLET PO SCH (09:00)
[2017-04-21] MEDS: PERCOCET 5-325 PO SCH ×3 (09:00→20:40)
[2017-04-21] MEDS: HUMULIN R SUBCUT PRN ×3 (12:40→20:42)
[2017-04-21] MEDS: LANTUS SUBCUT SCH (20:39)
[2017-04-21] MEDS: CYMBALTA PO SCH (20:40)
[2017-04-21] MEDS: ATIVAN PO SCH (20:40)
[2017-04-21] MEDS: EFFEXOR XR PO SCH (20:40)
[2017-04-22] MEDS: ALBUTEROL 0.042% NEB NEB SCH ×3 (05:07→21:22)
[2017-04-22 05:23] LABS: BASOPHILS # (AUTO) 0.1 K/uL (0-0.2); BASOPHILS % (AUTO) 0.7 % (0.0-3.0); EOSINOPHILS # (AUTO) 0.5 K/ul (0.0-0.7); EOSINOPHILS % (AUTO) 6.3 % (0.0-7.0); HEMATOCRIT 36.3 % (37.0-47.0); HEMOGLOBIN 12.6 g/dl (12.0-16.0); IMMATURE GRANULOCYTE % (AUTO) 0.4 % (0.0-5.0); LYMPHOCYTES # (AUTO) 3.2 K/uL (0.60-3.4); LYMPHOCYTES % (AUTO) 43.3 (10.0-50.0); MEAN CORPUSCULAR HEMOGLOBIN 30.4 pg (27.0-31.0); MEAN CORPUSCULAR HGB CONC 34.7 (31.8-35.4); MEAN CORPUSCULAR VOLUME 87.5 fl (81.0-99.0); MONOCYTES # (AUTO) 0.5 K/uL (0.4-2.0); NEUTROPHILS # (AUTO) 3.1 K/ul (2.0-6.9); NEUTROPHILS % (AUTO) 42.3; PLATELET COUNT 231 10^3/uL (140-440); RED BLOOD COUNT 4.15 10^6/ul (4.20-5.40); WHITE BLOOD COUNT 7.41 K/ul (4.6-10.2)
[2017-04-22 05:40] LABS: ALBUMIN 3.4 g/dL (3.4-5.0); ALBUMIN/GLOBULIN RATIO 1.13; ANION GAP 14.7; BILIRUBIN,TOTAL 0.27 mg/dL (0.00-1.20); BUN/CREATININE RATIO 21.68; CALCIUM 9.2 mg/dL (8.2-10.2); CREATININE 0.83 mg/dL (0.60-1.30); POTASSIUM 3.7 mmol/L (3.5-5.10); TOTAL PROTEIN 6.4 g/dL (6.4-8.2)
[2017-04-22] MEDS: ASPIRIN EC PO SCH (08:44)
[2017-04-22] MEDS: MULTIVITAMIN TABLET PO SCH (08:44)
[2017-04-22] MEDS: PLAVIX PO SCH (08:45)
[2017-04-22] MEDS: PERCOCET 5-325 PO SCH ×3 (08:45→20:58)
[2017-04-22] MEDS: NEURONTIN PO SCH ×3 (08:45→20:58)
[2017-04-22] MEDS: CALCIUM 500 + VIT D 200 MG TABLET PO SCH (08:45)
[2017-04-22] MEDS: BACTRIM DS 800/160 MG PO SCH ×2 (08:45→20:58)
[2017-04-22] MEDS: K-DUR PO SCH ×2 (08:46→17:47)
[2017-04-22] MEDS: COREG PO SCH ×2 (08:46→17:47)
[2017-04-22] MEDS: HUMULIN R SUBCUT PRN ×2 (19:14→20:56)
[2017-04-22] MEDS: LANTUS SUBCUT SCH (20:57)
[2017-04-22] MEDS: EFFEXOR XR PO SCH (20:57)
[2017-04-22] MEDS: CYMBALTA PO SCH (20:58)
[2017-04-22] MEDS: ATIVAN PO SCH (20:58)
[2017-04-23] MEDS: ALBUTEROL 0.042% NEB NEB SCH (04:57)
[2017-04-23 05:49] LABS: BASOPHILS % (AUTO) 0.4 % (0.0-3.0); EOSINOPHILS # (AUTO) 0.2 K/ul (0.0-0.7); EOSINOPHILS % (AUTO) 2.7 % (0.0-7.0); HEMATOCRIT 37.3 % (37.0-47.0); HEMOGLOBIN 13.1 g/dl (12.0-16.0); IMMATURE GRANULOCYTE % (AUTO) 0.3 % (0.0-5.0); LYMPHOCYTES # (AUTO) 1.9 K/uL (0.60-3.4); LYMPHOCYTES % (AUTO) 24.3 (10.0-50.0); MEAN CORPUSCULAR HEMOGLOBIN 30.7 pg (27.0-31.0); MEAN CORPUSCULAR HGB CONC 35.1 (31.8-35.4); MEAN CORPUSCULAR VOLUME 87.4 fl (81.0-99.0); MONOCYTES # (AUTO) 0.4 K/uL (0.4-2.0); MONOCYTES % (AUTO) 4.7 (0-10); NEUTROPHILS # (AUTO) 5.3 K/ul (2.0-6.9); NEUTROPHILS % (AUTO) 67.6; PLATELET COUNT 231 10^3/uL (140-440); RED BLOOD COUNT 4.27 10^6/ul (4.20-5.40); WHITE BLOOD COUNT 7.83 K/ul (4.6-10.2)
[2017-04-23 06:12] LABS: ALBUMIN 3.5 g/dL (3.4-5.0); ALBUMIN/GLOBULIN RATIO 1.09; BILIRUBIN,TOTAL 0.23 mg/dL (0.00-1.20); BUN/CREATININE RATIO 21.25; CALCIUM 9.4 mg/dL (8.2-10.2); CREATININE 0.8 mg/dL (0.60-1.30); TOTAL PROTEIN 6.7 g/dL (6.4-8.2)
[2017-04-23] MEDS ORDERED: DECADRON 4 MG/ML SDV IM STA (08:09)
[2017-04-23] MEDS: BACTRIM DS 800/160 MG PO SCH (08:29)
[2017-04-23] MEDS: PLAVIX PO SCH (08:29)
[2017-04-23] MEDS: K-DUR PO SCH (08:29)
[2017-04-23] MEDS: ASPIRIN EC PO SCH (08:29)
[2017-04-23] MEDS: COREG PO SCH (08:29)
[2017-04-23] MEDS: NEURONTIN PO SCH (08:29)
[2017-04-23] MEDS: CALCIUM 500 + VIT D 200 MG TABLET PO SCH (08:30)
[2017-04-23] MEDS: MULTIVITAMIN TABLET PO SCH (08:30)
[2017-04-23] MEDS: PERCOCET 5-325 PO SCH (08:30)
--- NOTE | 2017-04-23 08:35 | PN ---
DATE OF SERVICE: 04/19/17 SUBJECTIVE: 57 year old white female hospitalized with generalized weakness, difficulty swallowing, speech. The patient's neurological status is stable. No new findings noted on CT scan. Upper GI was also normal. PFT shows severe chronic lung disease. Labs are stable with Creatinine 0.8, BUN 17, potassium 3.5. Condition stable. The patient had carotid scan done which showed right carotid artery 50-70% the left one is OK. The patient was seen and examined with Stud Setter. TIME SPENT: More than 30 minutes. Plan and coordination of the patient's care discussed in the presence of nurse. KONSTANTIN
--- NOTE | 2017-04-23 09:22 | PCM.PROG ---
Attending Provider: ATTENDING PROVIDER: Dr. MATT FISHER This patient is seen with iLzz Gallegos, Nurse Practitioner. DATE OF SERVICE: 04/23/17 SUBJECTIVE: This 57 year old WHITE/ F was hospitalized 04/17/17. The patient is lying in bed, alert. She states she feels like she can go home today. She has been up and about. Sputum and urine cultures both positive. Will continue on Bactrim at home. Will order rolling walker at home as well as PT through Home Health. The patient declines to see a neurologist. REVIEW OF SYSTEMS: CONSTITUTIONAL: Generalized weakness. No night sweats. No fever or chills. HEENT: Eyes: No visual changes. No eye pain. No eye discharge. ENT: No runny nose. No epistaxis. No sinus pain. No odynophagia. No congestion. RESPIRATORY: No cough, no congestion. No hemoptysis. No shortness of breath. CARDIOVASCULAR: No angina symptoms. No CHF symptoms. No atypical chest pain for CAD. No palpitations. No orthopnea.. GASTROINTESTINAL: No abdominal pain. No nausea or vomiting. No diarrhea or constipation. No hematemesis. No hematochezia. GENITOURINARY: No urgency. No frequency. No dysuria. No hematuria. No obstructive symptoms. No discharge. No pain. No significant abnormal bleeding. MUSCULOSKELETAL: No musculoskeletal pain; no joint swelling. NEUROLOGICAL: Awake, alert, oriented to time, place and person. No headache. No neck pain. No syncope. No seizures. No dizziness. Gait: Ataxia. PSYCHIATRIC: Not anxious. No depression. No suicidal thoughts. No homicidal thoughts. SKIN: No rash. No lesions. No wounds. ENDOCRINE: No unexplained weight loss. No weight gain. HEMATOLOGIC/LYMPHATIC: No anemia. No purpura. No petechiae. No prolonged or excessive bleeding. No palpable lymph nodes. PHYSICAL EXAMINATION: GENERAL: The patient is awake, alert and oriented, lying in bed in no distress. VITAL SIGNS: Temperature 97.7 F, Pulse 73, Respiratory Rate 20, BP 115/58, Pulse Ox 94% HEENT: Head normocephalic, atraumatic. Eyes: Extraocular muscles are intact. Pupils are equal, round and reactive to light and accommodation. Ears: No lesions. Nose appeared normal. Throat: No exudate or erythema. NECK: Supple. No JVD, no carotid bruit. No lymphadenopathy or thyromegaly. LUNGS: Diminished breath sounds bilaterally. Clear to auscultation. Percussion note normal. Chest symmetrical. HEART: S1, S2, no S3. No murmurs. No cyanosis or clubbing. No ascites. Pulses: Dorsalis pedis and posterior tibial pulses +1 to +2 both sides. ABDOMEN: Soft. Non-tender. Bowel sounds active. No CVA tenderness. No mass felt. EXTREMITIES: No edema. Full range of motion of all extremities, equal. NEUROLOGIC: No focal deficit. Cranial nerves II through XII are grossly intact. No headache, no double vision or headache. SKIN: Not dry. Intact. Turgor-normal. LYMPHATIC: No palpable lymph nodes/no lymphedema. MUSCULOSKELETAL: Normal joints with no swelling. Muscle tone is normal. LAB REVIEW: 04/23/17 05:10 04/23/17 05:10 04/23/17 05:10: Sodium 139, Potassium 4.0, Chloride 105, Carbon Dioxide 25, Anion Gap 13.0, BUN 17, Creatinine 0.80, Estimated GFR (MDRD) 74.00, BUN/ Creatinine Ratio 21.25, Glucose 79, Calcium 9.4, Total Bilirubin 0.23, AST 23, ALT 19, Alkaline Phosphatase 81, Total Protein 6.7, Albumin 3.5, Globulin 3.2, Albumin/Globulin Ratio 1.09 04/23/17 05:10: WBC 7.83, RBC 4.27, Hgb 13.1, Hct 37.3, MCV 87.4, MCH 30.7, MCHC 35.1, RDW Coeff of Abbi 12.0, Plt Count 231, Immature Gran % (Auto) 0.3, Neut % (Auto) 67.6, Lymph % (Auto) 24.3, Stevens % (Auto) 4.7, Eos % (Auto) 2.7, Baso % (Auto) 0.4, Immature Gran # (Auto) 0.0, Neut # 5.3, Lymph # 1.9, Stevens # 0.4, Eos # 0.2, Baso # 0.0 ASSESSMENT: 1. The patient likely had CVA with several neurological findings relatively new likely two to three weeks ago 2. UTI 3. 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 Carotid stenosis 5. Smoking with chronic lung disease 6. Hypertension 7. Dyslipidemia 8. Diabetes mellitus, uncontrolled due to noncompliance 9. Acute COPD exacerbation PLAN: 1. The patient will benefit from the use of a rolling walker will order at home 2. PT/OT through Home Health 3. The patient refuses neurology consultation 4. Will continue Plavix daily 5. Smoking cessation advised, discussed 6. Discharge home on Bactrim times five more days 7. 1 cc Decadron Plan and coordination of the patient's care discussed in the presence of Lamp Cleaner Street Light and nurse. EDUCATION: Discussed seeing a neurologist, patient declines. The patient would benefit from a rolling walker at home for assistance/safety to walk. CONDITION: Stable SCRIBED BY: ROZINA CARLOS, Client Support Manager scribed while in presence of service performed by Dr. Fisher/Lizz Gallegos APRN on 04/23/17 ([id number])
--- NOTE | 2017-04-23 09:30 | RS.SLPCNOT ---
Speech Case Note Date of Note: 04/23/17 Title: Speech Consult Note: The patient was referred for speech consult upon admission to this facility due to increased difficulty swallowing thin liquids. The patient stated that she suffered a CVA on 03/23/17 and she did not seek medical attention but knew she had experienced changes with her swallowing. The patient reported that liquids "wouldn't go anywhere. Just sat there" Since admission the patient reported that she feels that her swallowing difficulies had resolved and is currently receiving a regular diet with thin liquids. For this consult the patient consumed thin liquids via cup and straw demonstrating no overt s/s of aspiration or difficulty. The patient was educated on possible s/s of aspiration including cough before/during/after swallow, nasal and eye drainiage, spiking of temp after swallowing. The patient was also educated on laryngeal strengthening exercises in order to maintain current function including pulling with resistance band, Shaker and Jeny. Additionally, education was also performed on compensatory strategies including chin tuck and effortful swallow should difficulty arise. No further tx is recommended at this time.
[2017-04-23 10:08] VITALS: BP 109/65; TEMP 98.3
--- NOTE | 2017-04-23 11:02 | PN ---
DATE OF SERVICE: 04/20/17 SUBJECTIVE: 57 year old white female hospitalized with symptoms of stroke which happened nearly 2-3 weeks prior. She exactly dated it March 23, 2017. The patient decided to come because she continued to have problem with the speech and walking with some ataxia and weakness. On further workup the patient doesn't have any acute problem. REVIEW OF SYSTEMS: CONSTITUTIONAL: No night sweats. No fatigue, malaise, lethargy. No fever or chills. HEENT: Eyes: No visual changes. No eye pain. No eye discharge. ENT: No runny nose. No epistaxis. No sinus pain. No sore throat. No odynophagia. No congestion. RESPIRATORY: No cough, no congestion. No hemoptysis. No shortness of breath. CARDIOVASCULAR: No angina symptoms. No CHF symptoms. No atypical chest pain for CAD. No palpitations. No orthopnea. No PND. GASTROINTESTINAL: No abdominal pain. No nausea or vomiting. No diarrhea or constipation. No hematemesis. No hematochezia. GENITOURINARY: No urgency. No frequency. No dysuria. No hematuria. No obstructive symptoms. No discharge. No pain. No significant abnormal bleeding. MUSCULOSKELETAL: No musculoskeletal pain; no joint swelling. Walking still needs some help, she is under physical therapy at present time. She is walking. NEUROLOGICAL: No headache. No neck pain. No syncope. No seizures. No dizziness. Continued difficulty with speech but the speech is more or less clear. Somewhat slow in pronunciation but she is clear. PSYCHIATRIC: Not anxious. No depression. No suicidal thoughts. No homicidal thoughts. SKIN: No rash. No lesions. No wounds. ENDOCRINE: No unexplained weight loss. No weight gain. HEMATOLOGIC/LYMPHATIC: No anemia. No purpura. No petechiae. No prolonged or excessive bleeding. No palpable lymph nodes. PHYSICAL EXAMINATION: GENERAL: The patient is oriented to time, place and person. VITAL SIGNS: Temperature 97.7, pulse 79, respiratory rate 124/72, pulse ox 98% . HEENT: Head normocephalic, atraumatic. Eyes: Extraocular muscles are intact. Pupils are equal, round and reactive to light and accommodation. Ears: No lesions. Nose appeared normal. Throat: No exudate or erythema. NECK: Supple. No JVD, no carotid bruit. No lymphadenopathy or thyromegaly. LUNGS: Decreased breath sounds but clear to auscultation. Percussion note normal. Chest symmetrical. HEART: S1, S2, no S3. No murmurs. No cyanosis or clubbing. No ascites. Pulses: Dorsalis pedis and posterior tibial pulses +1 to +2 both sides. ABDOMEN: Soft. Nontender. Bowel sounds active. No CVA tenderness. No mass felt. EXTREMITIES: No edema. Full range of motion of all extremities, equal. NEUROLOGIC: No focal deficit. Cranial nerves II through XII are grossly intact. No headache, no double vision or headache. SKIN: Not dry. Intact. Turgor - normal. LYMPHATIC: No palpable lymph nodes/no lymphedema. MUSCULOSKELETAL: Normal joints with no swelling. Muscle tone is normal. LABS: Hgb 12.5, hct 35, WBC 8,200 normal differential, creatinine 0.8, BUN 18, potassium 3.4. The patient had gram negative rods in her urine. ASSESSMENT: 1. Recent stroke, 03/23/[address] up [address] CT scan. The patient was scheduled for MRI which was cancelled because the patient has plates and screws in the hip and legs. 2. Smoking 3. COPD 4. Hypertension 5. History of previous CVA with hemiparesis 6. Noncompliance PLAN: 1. Continue physical therapy 2. Speech therapy 3. Dysphagia study was normal so patient shouldn't have much problems swallowing. 4. Advised to keep walking 5. Advised physical therapy even when she is discharged to come as an outpatient 6. Smoking counseling done 7. Carotid artery one of them is 50-70%, discussed with her 8. MIGUEL discussed with her 9. Goal for non HDL less than 100 discussed CONDITION: Stable PROGNOSIS: Poor TIME SPENT: More than 30 minutes. Plan and coordination of the patient's care discussed in the presence of nurse. KONSTANTIN
--- NOTE | 2017-04-23 11:42 | ECHO2D ---
Date of Exam: 04/20/17 Ordering Physician: MATT FISHER Room #: 117 Reason for Echo: WEAKNESS, FATIGUE, HTN, CVA, PAD M-Mode Normal Adult Results LV Dimensions Normal Adult Results AoV Opening excursions >1.6 >1.6 LVEDD-base- 3.5-5.8 4.4 Ao root dimensions 2.0-3.7 3.3 LVESD-base- 3.1-4.6 L. Atrium dimensions 1.9-3.8 4.5 Post. Wall thickness 0.8-1.1 1.2 IV septum (thickness) 0.7-1.2 1.1 Post. Wall excursion 0.72-1.3 NORMAL Septal motion NORMAL Systolic motion R. Ventricular cavity 1.5-2.0 3.0 LVEF 60% 56% Paradoxical septal wall motion NORMAL 2-D : ENLARGED LEFT ATRIAL CAVITY, NORMAL LEFT VENTRICULAR CONTRACTILITY-- NORMAL VALVES, NO EFFUSION, NO THROMBUS M-MODE: MV: NORMAL AV: NORMAL TV: NORMAL PV: CHAMBER SIZE: ENLARGED LEFT ATRIAL CAVITY/ ENLARGED RIGHT VENTRICLE CAVITY WALL MOTION: NORMAL PERICARDIUM: NORMAL INTERPRETATION: 1. BORDERLINE LEFT VENTRICULAR HYPERTROPHY WITH ENLARGED LEFT ATRIAL CAVITY 2. NORMAL LEFT VENTRICULAR CONTRACTILITY 3. ENLARGED RIGHT VENTRICLE CAVITY MTDD
--- NOTE | 2017-04-23 11:51 | CM.DICTOOL ---
ADMISSION: 04/17/17 14:10 DISCHARGE: 04/23/17 DATE OF SERVICE: 04/23/17 FINAL DIAGNOSIS ATAXIA, WEAKNESS, DYSPHAGIA, SHORTNESS OF BREATH, URINARY INCONTINENCE CVA, ISCHEMIC BOTH CEREBRAL HEMISPHERES (MRI 06/01/14), RIGHT HEMIPARESIS UTI, E-COLI BRONCHITIS, SPUTUM-KLEBSIELLA OXYTOCA/CITROBACTER FREUNDII DM, TYPE 2 NEUROPATHY HYPERTENSION DYSLIPIDEMIA CAROTID STENOSIS, MODERATE ON THE RIGHT (CAROTID U/S 05/29/14) COPD CONTINUED TOBACCO USE DJD-SPINE ANXIETY/DEPRESSION BILATERAL HIP REPLACEMENTS TONSILLECTOMY AND ADENOIDECTOMY TUBAL LIGATION LAST VITALS Temp Pulse Resp BP Pulse Ox 98.3 F 76 20 109/65 94 L 04/23/17 10:00 04/23/17 10:00 04/23/17 10:00 04/23/17 10:00 04/23/17 10:00 ACTIVE MEDICATIONS Aspirin (Aspirin Ec) 81 mg PO DAILYWM [facility] Last Admin: 04/23/17 08:29 Dose: 81 mg Calcium/Vitamin D (Calcium 500 + Vit D 200 Mg Tablet) 1 each PO DAILY [facility] Last Admin: 04/23/17 08:30 Dose: 1 each Carvedilol (Coreg) 25 mg PO BIDWM [facility] Last Admin: 04/23/17 08:29 Dose: 25 mg Duloxetine HCl (Cymbalta) 60 mg PO BEDTIME [facility] Last Admin: 04/22/17 20:58 Dose: 60 mg Gabapentin (Neurontin) 300 mg PO TID [facility] Last Admin: 04/23/17 08:29 Dose: 300 mg Insulin Glargine (Lantus) 40 unit SUBCUT BEDTIME [facility] Last Admin: 04/22/17 20:57 Dose: 40 unit Lorazepam (Ativan) 1 mg PO BEDTIME [facility] Last Admin: 04/22/17 20:58 Dose: 1 mg Losartan/Hydrochlorothiazide (Hyzaar) 100-25 mg, 1 Tab PO DAILY PRN (CHANGED TO PRN) Multivitamins (Multivitamin Tablet) 1 tab PO DAILY [facility] Last Admin: 04/23/17 08:30 Dose: 1 tab Oxycodone/Acetaminophen (Percocet 5-325) 1 tab PO TID [facility] Last Admin: 04/23/17 08:30 Dose: 1 tab Venlafaxine HCl (Effexor Xr) 150 mg PO BEDTIME [facility] Last Admin: 12/03/17 20:57 Dose: 150 mg ALLERGIES moxifloxacin HCl [From Avelox] Allergy (Severe, Verified 07/28/14 10:26) Difficulty Breathing aspirin Allergy (Intermediate, Verified 07/28/14 10:26) Hives amoxicillin trihydrate [From Augmentin] Adverse Reaction (Intermediate, Verified 07/28/14 10:26) Hives potassium clavulanate [From Augmentin] Adverse Reaction (Intermediate, Verified 07/28/14 10:26) Hives Xghwady-Mxi-Vci Reductase Inhibitor Adverse Reaction (Intermediate, Verified 03/04 10:26) Contracted Muscles NEW PRESCRIPTIONS: PLEASE NOTE THE CHANGE IN ADMINISTRATION TIME FOR YOUR LOSARTAN/ HYDROCHLOROTHIAZIDE (HYZAAR). 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 SHE HAS A GOOD AWARENESS OF THE ADVERSE EFFECTS SMOKING HAS ON HER CARDIOPULMONARY HEALTH. SHE ALSO IS AWARE OF THE BENEFITS OF COMPLETE CESSATION. SHE HAS NOT VERBALIZED A PLAN TO STOP SMOKING. SHE WILL BENEFIT FROM CONTINUED ENCOURAGEMENT FOR COMPLETE CESSATION IN THE OUTPATIENT SETTING. DISEASE SPECIFIC EDUCATION: HOME HEALTH PHYSICAL/OCCUPATIONAL THERAPY ACTIVITY BLOOD PRESSURE MONITORING AT HOME HOME MEDICATIONS NEW PRESCRIPTIONS FOLLOW UP LAB REVIEW: 04/23/17 05:10 04/23/17 05:10 04/23/17 05:10: Sodium 139, Potassium 4.0, Chloride 105, Carbon Dioxide 25, Anion Gap 13.0, BUN 17, Creatinine 0.80, Estimated GFR (MDRD) 74.00, BUN/ Creatinine Ratio 21.25, Glucose 79, Calcium 9.4, Total Bilirubin 0.23, AST 23, ALT 19, Alkaline Phosphatase 81, Total Protein 6.7, Albumin 3.5, Globulin 3.2, Albumin/Globulin Ratio 1.09 04/23/17 05:10: WBC 7.83, RBC 4.27, Hgb 13.1, Hct 37.3, MCV 87.4, MCH 30.7, MCHC 35.1, RDW Coeff of Abbi 12.0, Plt Count 231, Immature Gran % (Auto) 0.3, Neut % (Auto) 67.6, Lymph % (Auto) 24.3, [place] % (Auto) 4.7, Eos % (Auto) 2.7, Baso % (Auto) 0.4, Immature Gran # (Auto) 0.0, Neut # 5.3, Lymph # 1.9, [place] # 0.4, Eos # 0.2, Baso # 0.0 PLAN: DISCHARGE HOME TODAY RETURN TO SEE DR. FISHER IN HIS OFFICE IN 5-7 DAYS. PLEASE CALL TO SCHEDULED YOUR APPOINTMENT ([phone]) [facility] WILL CONTACT YOU AT HOME TO SCHEDULE VISITS FOR NURSING SERVICES (GENERAL ASSESSMENT, MEDICATION COMPLIANCE) PT/OT WILL ALSO BE PROVIDED PH: [phone] [facility] WILL DELIVER A ROLLING WALKER FOR YOUR USE PH: [phone] RESUME YOUR HOME MEDICATIONS PER LIST PROVIDED BY THE NURSING STAFF PLEASE NOTE THE CHANGE IN ADMINISTRATION TIME FOR YOUR LOSARTAN/ HYDROCHLOROTHIAZIDE (HYZAAR). TAKE 100-25 MG, ONE TABLET BY MOUTH NEEDED DAILY FOR HYPERTENSION (PRN) NEW PRESCRIPTIONS PLAVIX 75 MG, TAKE ONE TABLET BY MOUTH DAILY BACTRIM DS 800-160 MG, TAKE ONE TABLET BY MOUTH Q 12 HOURS FOR 5 DAYS DIET CONSISTENT CARBS ACTIVITY GET PLENTY OF REST AT HOME. GRADUALLY INCREASE YOUR ACTIVITY LEVEL ACCORDING TO YOUR TOLERATION SUMMARY THE PATIENT IS ALERT AND ORIENTED X3. SHE CURRENTLY RESIDES AT HOME WITH HER SIGNIFICANT OTHER. SHE DESIRES TO RETURN THERE AT DISCHARGE. MS. NGUYEN HAS BEEN INDEPENDENT WITH ADL'S. SHE WILL BE SCHEDULED WITH [facility] FOR NURSING SERVICES FOR GENERAL ASSESSMENT AND PT/OT IN HER HOME. WE HAVE ALSO OBTAINED A ROLLING WALKER TO ASSIST HER WITH AMBULATING. THROUGH CT HEAD NO ACUTE CHANGES WERE DISCOVERED. THE PATIENT DECLINED AN MRI OF THE BRAIN DUE TO HAVING HARDWARE IN HER HIPS. SHE UNDERWENT BEDSIDE SWALLOWING STUDY TODAY. NO DEFICITS WERE NOTED. A BARIUM SWALLOW WAS ALSO COMPLETED AND FOUND TO BE NORMAL. THE PATIENT'S NEW ONSET URINARY INCONTINENCE COULD BE CONTRIBUTED TO A URINARY TRACT INFECTION WITH THE ORGANISM E-COLI. HER SPUTUM GREW KLEBSIELLA OXYTOCA AND CITROBACTER FREUNDII. THE CXR DURING THIS STAY RESULTED IN NO ACUTE FINDINGS. BOTH ORGANISMS ABOVE AND THE E-COLI ARE SUSCEPTABLE TO THE BACTRIM BEING PROVIDED. THE SKIN TURGOR IS INTACT AND WITHOUT DECUBITUS ULCERS. HYDRATION AND NUTRITIONAL STATUS ARE GOOD. THE PATIENT IS AWARE AND AGREEABLE FOR DISCHARGE TODAY. CURRENT CODE STATUS DO NOT RESUSCITATE JANEEN VILLARREAL APRN MATT FISHER M.D.
--- NOTE | 2017-04-24 10:17 | PN ---
DATE OF SERVICE: 04/21/17 SUBJECTIVE: 57 year old white female hospitalized with ataxia, generalized weakness, difficulty speech and swallowing. The patient's CT scan was negative. MRI couldn 't be done because the patient had several plates and screws in her hip and legs. REVIEW OF SYSTEMS: CONSTITUTIONAL: No night sweats. No fatigue, malaise, lethargy. No fever or chills. HEENT: Eyes: No visual changes. No eye pain. No eye discharge. ENT: No runny nose. No epistaxis. No sinus pain. No sore throat. No odynophagia. No congestion. RESPIRATORY: No cough, no congestion. No hemoptysis. No shortness of breath. CARDIOVASCULAR: No angina symptoms. No CHF symptoms. No atypical chest pain for CAD. No palpitations. No orthopnea. GASTROINTESTINAL: No abdominal pain. No nausea or vomiting. No diarrhea or constipation. No hematemesis. No hematochezia. GENITOURINARY: No urgency. No frequency. No dysuria. No hematuria. No obstructive symptoms. No discharge. No pain. No significant abnormal bleeding. MUSCULOSKELETAL: No musculoskeletal pain; no joint swelling. NEUROLOGICAL: No headache. No neck pain. No syncope. No seizures. No dizziness. Some difficulty in speech. Ataxia has improved a lot and she is feeling better. PSYCHIATRIC: Not anxious. No depression. No suicidal thoughts. No homicidal thoughts. SKIN: No rash. No lesions. No wounds. ENDOCRINE: No unexplained weight loss. No weight gain. HEMATOLOGIC/LYMPHATIC: No anemia. No purpura. No petechiae. No prolonged or excessive bleeding. No palpable lymph nodes. PHYSICAL EXAMINATION: GENERAL: The patient is oriented to time, place and person VITAL SIGNS: Temperature 97.5, pulse 66, respiratory rate 17, blood pressure 100/58 and pulse ox 98%. HEENT: Head normocephalic, atraumatic. Eyes: Extraocular muscles are intact. Pupils are equal, round and reactive to light and accommodation. Ears: No lesions. Nose appeared normal. Throat: No exudate or erythema. NECK: Supple. No JVD, no carotid bruit. No lymphadenopathy or thyromegaly. LUNGS: Clear to auscultation. Percussion note normal. Chest symmetrical. HEART: S1, S2, no S3. No murmurs. No cyanosis or clubbing. No ascites. Pulses: Dorsalis pedis and posterior tibial pulses +1 to +2 both sides. ABDOMEN: Soft. Nontender. Bowel sounds active. No CVA tenderness. No mass felt. EXTREMITIES: No edema. Full range of motion of all extremities, equal. NEUROLOGIC: No focal deficit. Cranial nerves II through XII are grossly intact. No headache, no double vision or headache. SKIN: Not dry. Intact. Turgor - normal. LYMPHATIC: No palpable lymph nodes/no lymphedema. MUSCULOSKELETAL: Normal joints with no swelling. Muscle tone is normal. LABS: Hgb 12.2, hct 35, WBC 6,300 normal differential, creatinine 0.9, BUN 16, potassium 3.7. ASSESSMENT: 1. Status post CVA, the patient had another CVA March 23 and didn't come to the hospital 2. Severe chronic lungs disease 3. Hypertension 4. Dyslipidemia PLAN: 1. Counseling for smoking done. 2. Blood pressure is low so will discontinue Hyzaar 3. Continue the rest of the medication 4. 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 Plan and coordination of the patient's care discussed in the presence of nurse. KONSTANTIN
--- NOTE | 2017-04-24 14:29 | PN ---
DATE OF SERVICE: 04/22/17 SUBJECTIVE: 57 year old white female hospitalized with CVA that happened on March 23 according to her. After that she has feeling more ataxic, has problems swallowing and speech. The patient's ambulation is somewhat better. The swallow is not much of a problem anymore and the speech seems to be clearing up. CT scan of the head didn't show any new stroke. MRI, she is not able to take it because of her pins and screws in the back and the legs. The patient is heavy smoker. Counseling for smoking done. REVIEW OF SYSTEMS: CONSTITUTIONAL: No night sweats. No fatigue, malaise, lethargy. No fever or chills. HEENT: Eyes: No visual changes. No eye pain. No eye discharge. ENT: No runny nose. No epistaxis. No sinus pain. No sore throat. No odynophagia. No congestion. RESPIRATORY: No cough, no congestion. No hemoptysis. No shortness of breath. CARDIOVASCULAR: No angina symptoms. No CHF symptoms. No atypical chest pain for CAD. No palpitations. No orthopnea. GASTROINTESTINAL: No abdominal pain. No nausea or vomiting. No diarrhea or constipation. No hematemesis. No hematochezia. GENITOURINARY: No urgency. No frequency. No dysuria. No hematuria. No obstructive symptoms. No discharge. No pain. No significant abnormal bleeding. MUSCULOSKELETAL: No musculoskeletal pain; no joint swelling. NEUROLOGICAL: No headache. No neck pain. No syncope. No seizures. No dizziness. Mild difficulty in speech and walking. PSYCHIATRIC: Not anxious. No depression. No suicidal thoughts. No homicidal thoughts. SKIN: No rash. No lesions. No wounds. ENDOCRINE: No unexplained weight loss. No weight gain. HEMATOLOGIC/LYMPHATIC: No anemia. No purpura. No petechiae. No prolonged or excessive bleeding. No palpable lymph nodes. PHYSICAL EXAMINATION: VITAL SIGNS: Temperature 97.7, pulse 73, respiratory 16, blood pressure 92/56 and pulse ox 92%. HEENT: Head normocephalic, atraumatic. Eyes: Extraocular muscles are intact. Pupils are equal, round and reactive to light and accommodation. Ears: No lesions. Nose appeared normal. Throat: No exudate or erythema. NECK: Supple. No JVD, no carotid bruit. No lymphadenopathy or thyromegaly. LUNGS: Decreased breath sounds but clear to auscultation. Percussion note normal. Chest symmetrical. HEART: S1, S2, no S3. No murmurs. No cyanosis or clubbing. No ascites. Pulses: Dorsalis pedis and posterior tibial pulses +1 to +2 both sides. ABDOMEN: Soft. Nontender. Bowel sounds active. No CVA tenderness. No mass felt. EXTREMITIES: No edema. Full range of motion of all extremities, equal. NEUROLOGIC: No focal deficit. Cranial nerves II through XII are grossly intact. No headache, no double vision or headache. SKIN: Not dry. Intact. Turgor - normal. LYMPHATIC: No palpable lymph nodes/no lymphedema. MUSCULOSKELETAL: Normal joints with no swelling. Muscle tone is normal. LABS: hgb 12.6, hct 36, WBC 7,400 normal differential, creatinine 0.8, BUN 18. ASSESSMENT: 1. CVA 2. Carotid stenosis 3. Severe chronic lung disease 4. Hypertension PLAN: 1. Continue the all medications 2. The patient's Hyzaar was discontinued, still the blood pressure is on the low side 3. Agreed to take Plavix along with coated Aspirin 4. She is not interested in fancy or exotic blood thinners like Eliquis, Coumadin etc. CONDITION: Stable The patient is diabetic but blood sugar is running in acceptable level. The patient is noncompliant of her medications, lifestyle. PROGNOSIS: Not good. TIME SPENT: More than 30 minutes. Plan and coordination of the patient's care discussed in the presence of nurse. KONSTANTIN
--- NOTE | 2017-04-25 09:40 | PN ---
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 The patient had a stroke a 03/23/17. The patient is reliable historian. The CT scan didn't show any new findings and unable to get MRI because of patient's previous surgery with pins. She is up and about walking better. Her swallowing is better and speech has improved. PLAN: 1. Advised continued physical therapy 2. Noncompliance is this patient's problem with continued smoking. 3. Counseling for smoking done. CONDITION: Stable. TIME SPENT: More than 30 minutes. Plan and coordination of the patient's care discussed in the presence of nurse. KONSTANTIN
--- NOTE | 2017-04-26 09:40 | DS ---
DATE OF SERVICE: 04/23/17 FINAL DIAGNOSIS: 1. Ataxia, weakness, dysphagia, shortness of breath, urinary incontinence 2. CVA, ischemic both cerebral hemispheres (MRI 06/01/14), right hemiparesis 3. UTI, E-coli 4. Bronchitis, Sputum-Klebsiella Oxytoca/Citrobacter freundii 5. Diabetes Mellitus, type 2 6. Neuropathy 7. Hypertension 8. Dyslipidemia 9. 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 DISCHARGE INSTRUCTIONS: Discharge home today. Return to see Dr. Bellamy in his office in 5-[address] [facility] will contact your at home to schedule visits for halfway services PT/OT will also be provided. [employer] home [employer] will deliver a rolling walking for use. Resume home medications as per list provided by the nursing staff. Please note the change in administration time for Losartan /Hydrochlorothiazide take 100-25mg one tablet by mouth as needed daily for hypertension. MEDICATIONS AT DISCHARGE: Aspirin 81mg PO daily Calcium 500+Vit D 200mg one each PO daily Coreg 25mg PO twice a day Cymbalta 60mg PO bedtime Neurontin 300mg PO three time a day Lantus 40unit SUBCUT bedtime Ativan 1mg PO bedtime Hyzaar 100-25 one tablet PO daily PRN Multivitamin one tablet PO daily Percocet 5-325 PO three times a day Effexor XR 150mg Po bedtime ALLERGIES: Moxifloxacin HCL Aspirin Amoxicillin Trihydrate Potassium Clavulanate Azmritb-XWD-Oqi Reductase NEW PRESCRIPTIONS: Please note the change in administration time for Losartan/Hydrochlorothiazide. Take 10-25mg, one tablet by mouth as needed daily for hypertension (PRN) Plavix 75mg take one tablet by mouth daily Bactrim DS 800-160mg, take one tablet by mouth Q 12 hours for 5 days. DIET INSTRUCTIONS: Consistent carbohydrates ACTIVITY: Get plenty of rest at home. Gradually increase your activity level according to toleration. 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 She has a good awareness of the adverse effects smoking has on her cardiopulmonary health. She also is aware of the benefits of complete cessation. She has not verbalized a plan to stop smoking. She will benefit from continued encouragement for complete cessation in the outpatient setting. DISEASE SPECIFIC EDUCATION: Home health Physical/occupation therapy Activity Blood pressure monitoring at home Home medications New prescriptions Followup. HOSPITAL COURSE: 57 year old white female with history of multiple CVA's. She presented to our office on 04/17/17 stated that she had had stroke like syndrome with ataxia, weakness, dysphagia, some urinary incontinence. She says that she started feeling this way on 03/23/17 and felt as if she had had another stroke. She had a history of CVA in 2015 with right hemiparesis. She was a direct admit from our office CT scan of the brain revealed no acute changes. Urine was positive for e-coli. She was started on Bactrim DS PO twice a day. She also developed a cough while she was in the hospital and was given Decadron. Her sputum was cultured and positive for Klebsiella which was also sensitive to the Bactrim that she was on. She had a physical therapy and occupation therapy evaluation and treatment which did reveal some right sided weakness. Her urinary incontinence is thought to possible be from her urinary tract infection. Chest x -ray was normal with changes associated with COPD but no acute consolidation. She is a detention smoker. She also has a history of uncontrolled diabetes Mellitus type 2 due to noncompliance. Speech evaluation and consult was done. She is taking her medication fine which is normal. The patient refused further evaluation of the brain by MRI because she had some hip replacement. The patient refuses neurological consult for further evaluation symptoms. She has seen a neurologist in the past with her initial stroke but refuses to see one again. The patient states that she would like to go home today. Her blood pressure is normal. We have backed off her Losartan because she has had some hypotensive episodes but has been asymptomatic. At discharge temperature 98.3, pulse 76, respiratory 20, blood pressure 109/65 and pulse ox 94%. She will go home today on Plavix which is a new prescription for her as well finish her Bactrim for the next 5 days. She does have a slight improvement in her weakness. Information is given regarding smoking cessation and she is advised to quit. She is also advised to see a neurologist which she again refuses. We will recommend her for physical and occupation therapy at home. She has chosen [facility] which will call her to schedule her visits. She will followup in her office within the next. At the time of discharge she has been up and about on her own. She has been using a rolling walker in the hospital which really helps her to get around and improves her mobility and quality of life so we will send her home with an order for a rolling walker. TIME SPENT: More than 60 minutes. KONSTANTIN
== END 2017-04-23 12:50 | disposition home or self-care (01) | DRG 92 ==
LOC: MEDSURG B 14:10
PROVIDERS: ADMIT Internal Medicine; ATTEND Internal Medicine
DX: R27.0 Ataxia, unspecified (principal); I69.951 Hemiplegia and hemiparesis following unspecified cerebrovascular disease affecting right dominant side; N39.0 Urinary tract infection, site not specified; R53.1 Weakness; R13.10 Dysphagia, unspecified; R47.89 Other speech disturbances; F17.200 Nicotine dependence, unspecified, uncomplicated; I65.21 Occlusion and stenosis of right carotid artery; I51.7 Cardiomegaly; R06.02 Shortness of breath; R32 Unspecified urinary incontinence; E11.65 Type 2 diabetes mellitus with hyperglycemia; B96.20 Unspecified Escherichia coli [E. coli] as the cause of diseases classified elsewhere; J20.8 Acute bronchitis due to other specified organisms; G62.9 Polyneuropathy, unspecified; I10 Essential (primary) hypertension; E78.5 Hyperlipidemia, unspecified; J44.9 Chronic obstructive pulmonary disease, unspecified; M47.9 Spondylosis, unspecified; F41.8 Other specified anxiety disorders; Z96.643 Presence of artificial hip joint, bilateral; Z91.19 Patient's noncompliance with other medical treatment and regimen; Z79.4 Long term (current) use of insulin; Z79.899 Other long term (current) drug therapy
CPT/HCPCS: 36415; 80053; 81001; 82550; 82962; 83036; 83874; 84484; 85025; 87070; 87086; 87186; 93005; 93010; 94640

== ENCOUNTER 2017-05-01 13:43 | Emergency (ER) ==
[2017-05-01 13:48] VITALS: BP 171/95; TEMP 97.3; BMI 20.7
--- NOTE | 2017-05-01 14:39 | DI ---
EXAM: Two views of the left hand HISTORY: Left hand injury. COMPARISON: Left wrist x-rays same day FINDINGS: There is minimally displaced fracture of the ulnar styloid process. Distal radius is prabhakar r evaluated on same date dedicated wrist x-rays. The carpal bones are unremarkable. The metacarpal and phalanges are normal with no fracture or dislocation. Joint spaces are maintained. The soft tis sues are unremarkable. IMPRESSION: 1. Minimally displaced ulnar styloid fracture. 2. No additional abnormality of the left hand.
--- NOTE | 2017-05-01 14:40 | DI ---
Exam: Three x-rays of the left wrist. Comparison: None available. Reason for exam: Injury. FINDINGS: Displaced fractures are seen in the left radius and ulna. The anatomic alignment is relat ively well maintained. The joint spaces also appear relatively well maintained. Impression: Minimally displaced fractures of the left distal radius and ulna. Report faxed at [phone] hours on 05/01/2017.
--- NOTE | 2017-05-01 14:52 | ED.PDOC ---
General ED Provider: Dr. REECE CELAYA Chief Complaint: Wrist Pain/Injury Stated Complaint: left wrist pain Time Seen by Physician: 13:55 Mode of Arrival: Walk-In Information Source: Patient Exam Limitations: No limitations Primary Care Provider: MATT FISHER Nursing and Triage Documentation Reviewed and Agree: Yes (seen with nurse at bedside ) Musculoskeletal Complaint Exam - Hand/Wrist Complaint/Exam Location of Pain: Reports: Hand, Wrist Mechanism of Injury: Reports: Trauma Onset/Duration: today Symptoms Are: Still present Onset of Pain: Reports: Immediate Initial Severity: Mild Current Severity: Mild Location: Reports: Discrete Character: Reports: Aching Alleviating: Reports: Rest Aggravating: Reports: Movement Associated Signs and Symptoms: Denies: Swelling, Redness, Bruising, Fever, Weakness, Numbness, Tingling Dominant Hand: Right Tenderness: Present: Radius Compartment Syndrome Risk Factors: Present: Pain Differential Diagnoses: Closed Fracture Review of Systems - Review Of Systems Constitutional: Reports: No symptoms Eyes: Reports: No symptoms Ears, Nose, Mouth, Throat: Reports: No symptoms Respiratory: Reports: No symptoms Cardiac: Reports: No symptoms GI: Reports: No symptoms : Reports: No symptoms Musculoskeletal: Reports: Joint pain (wrist) Skin: Reports: No symptoms Neurological: Reports: No symptoms Endocrine: Reports: No symptoms Hematologic/Lymphatic: Reports: No symptoms All Other Systems: Reviewed and Negative Past Medical History - Past Medical History Previously Healthy: Yes Endocrine: Reports: None Cardiovascular: Reports: None Respiratory: Reports: None Hematological: Reports: None Gastrointestinal: Reports: None Genitourinary: Reports: None Neuro/Psych: Reports: None Musculoskeletal: Reports: None Cancer: Reports: None Last Menstrual Period: n/a - Surgical History General Surgical History: Reports: None - Family History Family History: Reports: None - Social History Smoking Status: Former smoker Hx Substance Use: Yes Alcohol Screening: None Physical Exam - Physical Exam Appearance: Well-appearing, No pain distress, Well-nourished Eyes: RADHA, EOMI, Conjunctiva clear ENT: Ears normal, Nose normal, Oropharynx normal Respiratory: Airway patent, Breath sounds clear, Breath sounds equal, Respirations nonlabored Cardiovascular: RRR, Pulses normal, No rub, No murmur GI/: Soft, Nontender, No masses, Bowel sounds normal, No Organomegaly Musculoskeletal: Normal strength, Limited ROM (left wrist) Skin: Warm, Dry, Normal color Neurological: Sensation intact, Motor intact, Reflexes intact, Cranial nerves intact, Alert, Oriented Psychiatric: Affect appropriate, Mood appropriate Critical Care Note - Critical Care Note Total Time (mins): 0 Course - Course Orders, Labs, Meds: Orders Category Date Time Status HAND, LEFT 2 VIEWS Stat RADS 05/01/17 14:08 Ordered WRIST, LEFT 3 VIEWS Stat RADS 05/01/17 14:08 Ordered Vital Signs: Temp Pulse Resp BP Pulse Ox 05/01/17 13:44 97.3 F L 114 H 16 171/95 H 97 Departure - Departure Time of Disposition: 14:51 Disposition: HOME SELF-CARE Discharge Problem: Pain in wrist, Injury of wrist Instructions: Wrist Fracture in Adults (ED) Condition: Good Pt referred to PMD for follow-up: Yes Additional Instructions: Please call your Family Physician as soon as possible to schedule a follow-up appointment. Allergies/Adverse Reactions: Allergies moxifloxacin HCl [From Avelox] Allergy (Severe, Verified 05/01/17 13:48) Difficulty Breathing aspirin Allergy (Intermediate, Verified 05/01/17 13:48) Hives amoxicillin trihydrate [From Augmentin] Adverse Reaction (Intermediate, Verified 05/01/17 13:48) Hives potassium clavulanate [From Augmentin] Adverse Reaction (Intermediate, Verified 05/01/17 13:48) Hives Hydtuyq-Pop-Pny Reductase Inhibitor Adverse Reaction (Intermediate, Verified 05/06 13:48) Contracted Muscles Home Medications: Ambulatory Orders Calcium Carbonate/Vitamin D3 [Calcium 500-Vit D3 400 Tablet] 1 each PO DAILY 30 Days tablet 11/09/14 Carvedilol [Coreg] 25 mg PO BIDWM #60 tablet 11/09/14 Lorazepam [Ativan] 1 mg PO BEDTIME 30 Days tablet 11/09/14 Aspirin [Adult Low Dose Aspirin EC] 1 tab PO DAILY 04/17/17 Duloxetine HCl 60 mg PO BEDTIME 04/17/17 Gabapentin [Neurontin] 300 mg PO TID 04/17/17 Insulin Glargine,Hum.rec.anlog [Lantus] 40 units SQ BEDTIME 04/17/17 Multivitamin 1 tab PO DAILY 04/17/17 Oxycodone-Acetaminophen 5-325 [Percocet 5-325] 1 tab PO TID 04/17/17 Venlafaxine HCl [Effexor] 150 mg PO BEDTIME 04/17/17 Clopidogrel Bisulfate [Plavix] 75 mg PO DAILY #30 tablet 04/23/17 Losartan/Hydrochlorothiazide [Hyzaar 100-25 Tablet] 1 each PO DAILY PRN #30 tablet 04/23/17 Disposition Discussed With: Patient
== END 2017-05-01 15:09 | disposition home or self-care (01) ==
LOC: ED 13:43
DX: S52.502A Unspecified fracture of the lower end of left radius, initial encounter for closed fracture (principal); S52.602A Unspecified fracture of lower end of left ulna, initial encounter for closed fracture
CPT/HCPCS: 99283